=== PATIENT | female | born 1975 | race Two or more races ===

== ENCOUNTER 2017-04-05 07:21 | Emergency (ER) | payer MEDICAID ==
[~2017-04-05] VITALS: Ht 154.9 cm; Wt 73.5 kg
[~2017-04-05 07:21] MED LIST: CYCLOBENZAPRINE5 MG PO; LEVOTHYROXINE0.1 M2 PO; PRI20 PO; TYL325 PO; [UNRECOGNIZED DRUG - OTHER]
[2017-04-05 07:42] VITALS: Ht 154.9 cm; Wt 73.5 kg
[2017-04-05 08:10] LABS: PLATELET COUNT 296 x10^3mcL (130-400); RED CELL DISTRIBUTION WIDTH 14.2 % (11.5-14.5)
[2017-04-05 08:24] LABS: CALCIUM 8.7 mg/dL (8.5-10.1); CHLORIDE SERUM 104 mmol/L (98-107); CREATININE SERUM 0.8 mg/dL (0.6-1.0); GFR1 > 60 mL/min; GLUCOSE SERUM 98 mg/dL (74-106); POTASSIUM SERUM 3.7 mmol/L (3.5-5.1); SODIUM SERUM 139 mmol/L (136-145)
[2017-04-05 08:28] LABS: ALBUMIN 3.7 g/dL (3.4-5.0); ALKALINE PHOSPHATASE 65 U/L (46-116); ALT/SGPT 55 U/L (14-59); AST/SGOT 29 U/L (15-37); LIPASE 127 IU/L (73-393); TOTAL PROTEIN, SERUM 8.2 g/dL (6.4-8.2)
[2017-04-05 09:54] VITALS: BP 116/76
== END 2017-04-05 09:54 | disposition home or self-care (01) ==
LOC: ED 07:21
PROVIDERS: Emergency Medicine
DX: R10.12 Left upper quadrant pain (principal); N39.0 Urinary tract infection, site not specified; Z88.0 Allergy status to penicillin
CPT/HCPCS: 36415; J1885; Q0162